=== PATIENT | male | born 1960 | race Caucasian/White ===

== ENCOUNTER → 2022-05-15 | Outpatient (CLI) | payer MEDICARE, MEDICAID | END | disposition home or self-care (01) | LOC: NPLAB 14:37 | PROVIDERS: ATTEND Internal Medicine | DX: L73.9 Follicular disorder, unspecified (principal); Z73.9 Problem related to life management difficulty, unspecified | CPT/HCPCS: 87070; 87077; 87186 ==

== ENCOUNTER → 2024-08-04 | Outpatient (CLI) | payer OTHER ==
[2024-08-04 18:04] LABS: BASOPHIL % 0.2 % (0.2-1.2); HEMATOCRIT(ML) 29.3 % (37.0-53.0); HEMOGLOBIN 9.2 g/dL (13.9-16.3); LYMPHOCYTES # 0.85 10^3/uL1 (1.0-4.8); LYMPHOCYTES % 16.3 % (24.0-44.0); MEAN CORP HGB 28.2 pg (26-34); MEAN CORP HGB CONCENTRATION 31.4 g/dL (33-36.5); MEAN CORP VOLUME 89.9 fL (78-100); MONOCYTES # 0.4 10^3/uL (0.3-0.8); NEUTROPHIL # 3.9 10^3/uL (1.8-7.7); NEUTROPHILS % 75.1 % (41.0-85.0); PLATELET COUNT 145 10^3/uL (150-400); RED BLOOD CELL 3.26 10^6/uL (4.50-5.90); WHITE BLOOD CELL 5.2 10^3/uL (4.5-11.0)
[2024-08-04 18:05] LABS: +ADD MANUAL DIFF(NO CHRG) NO
[2024-08-04 18:06] LABS: BILIRUBIN,URINE NEGATIVE (NEGATIVE); LEUKOCYTE ESTERASE ,URINE TRACE (NEGATIVE); NITRATE,URINE NEGATIVE (NEGATIVE); UROBILINOGEN,URINE 0.2 E.U./dL (0.2)
[2024-08-04 18:11] LABS: ALBUMIN(ML) 3.6 g/dL (3.4-5.0); ALBUMIN/GLOBULIN RATIO 1.161; ANION GAP 13.3; BUN/CREATININE RATIO 12.03 (10.0-20.0); CALCIUM 8.4 mg/dL (8.4-10.5); CARBON DIOXIDE 23.1 mmol/L (20.0-32); CREATININE SERUM 4.82 mg/dL (0.59-1.40); EST GFR, NON-AA 12.3 (>/=60); POTASSIUM 5.4 mmol/L (3.6-5.2)
[2024-08-04 18:19] LABS: UA COLOR YELLOW
[2024-08-04 18:20] LABS: APPEARANCE,URINE HAZY
== END | disposition home or self-care (01) ==
LOC: NPLAB 17:32
PROVIDERS: ATTEND Internal Medicine
DX: N18.4 Chronic kidney disease, stage 4 (severe) (principal)
CPT/HCPCS: 36415; 80053; 80069; 81001; 82043; 82570; 85025; 87077; 87086; 87186

== ENCOUNTER → 2024-11-08 | Outpatient (CLI) | payer OTHER ==
[2024-11-08 18:40] LABS: ALBUMIN(ML) 3.3 g/dL (3.4-5.0); ANION GAP 10.1; BUN/CREATININE RATIO 9.62 (10.0-20.0); CALCIUM 7.8 mg/dL (8.4-10.5); CARBON DIOXIDE 25.1 mmol/L (20.0-32); CREATININE SERUM 4.26 mg/dL (0.59-1.40); EST GFR, NON-AA 14.2 (>/=60); POTASSIUM 5.2 mmol/L (3.6-5.2)
== END | disposition home or self-care (01) ==
LOC: LAB 18:07
PROVIDERS: ATTEND Internal Medicine Nephrology
DX: N18.4 Chronic kidney disease, stage 4 (severe) (principal)
CPT/HCPCS: 36415; 80069; 82043; 82570; 85027